=== PATIENT | female | born 1965 | race Caucasian/White ===

== ENCOUNTER 2016-12-31 07:32 | Emergency (ER) | payer BC ==
[~2016-12-31] VITALS: Ht 165.1 cm; Wt 133.4 kg
[2016-12-31] MEDS ORDERED: IV NORMAL SALINE 1000ML BAG 1,000 ML IV ONE (08:15)
[2016-12-31] MEDS ORDERED: diphenhydrAMINE 50 MG/ML VIAL IVP ONE (08:15)
[2016-12-31] MEDS ORDERED: METOCLOPRAMIDE HCL 10 MG/2 ML VIAL. IV ONE (08:15)
--- NOTE | 2016-12-31 08:32 | PHYS DOC ---
Past Medical History Past Medical History: No Pertinent History Past Surgical History: No Surgical History Alcohol Use: None Drug Use: None Adult General Chief Complaint Chief Complaint: HEADACHE HPI HPI 51-year-old female presenting to the emergency department today with a typical headache. She describes having this severe headache that started around 5 AM. It is sharp radiating to the back and associated with mild blurred vision. She denies numbness or weakness in her extremities. She denies it being sudden in onset. She denies neck stiffness. She denies fevers. Review of systems is negative for , chest pain shortness of breath abdominal pain. Positive for nausea without vomiting. All other review of systems is negative unless otherwise noted in history of present illness. Review of Systems Review of Systems SEE ABOVE. Current Medications Current Medications Current Medications Medications (Trade) Dose Ordered Sig/Jeet Start Time Stop Time Status Last Admin Dose Admin Dexamethasone Sodium Phosphate (Decadron) 10 mg 1X ONCE 12/31/16 10:15 12/31/16 10:17 DC 12/31/16 11:26 10 MG Diphenhydramine HCl (Benadryl) 50 mg 1X ONCE 12/31/16 08:15 12/31/16 08:33 DC 12/31/16 09:43 50 MG Hydromorphone HCl (Dilaudid) 0.5 mg PRN Q1HR PRN 12/31/16 10:30 12/31/16 11:06 0.5 MG Ketorolac Tromethamine (Toradol) 30 mg 1X ONCE 12/31/16 10:15 12/31/16 10:17 DC 12/31/16 11:05 30 MG Metoclopramide HCl (Reglan) 20 mg 1X ONCE 12/31/16 08:15 12/31/16 08:33 DC 12/31/16 09:45 20 MG Ondansetron HCl (Zofran) 4 mg 1X ONCE 12/31/16 10:30 12/31/16 10:31 DC 12/31/16 11:05 4 MG Sodium Chloride 1,000 ml @ 1,000 mls/hr 1X ONCE 12/31/16 08:15 12/31/16 09:14 DC 12/31/16 09:42 1,000 MLS/HR Allergies Allergies Allergies Coded Allergies Type Severity Reaction Last Updated Verified Iodine and Iodide Containing Produc Allergy Unknown Hives,Itching. 12/31/16 Yes codeine Allergy Unknown Hives,Itching. 12/31/16 Yes Physical Exam Physical Exam Constitutional: Well developed, well nourished, no acute distress, non-toxic appearance. HENT: Normocephalic, atraumatic, bilateral external ears normal, oropharynx moist, no oral exudates, nose normal. [] Eyes: PERRLA, EOMI, conjunctiva normal, no discharge. Neck: Normal range of motion, no tenderness, supple, no stridor. [] Cardiovascular:Heart rate regular rhythm, no murmur [] Lungs & Thorax: Bilateral breath sounds clear to auscultation Abdomen: Bowel sounds normal, soft, no tenderness, no masses, no pulsatile masses. [] Skin: Warm, dry, no erythema, no rash. Back: No tenderness, no CVA tenderness. [] Extremities: No tenderness, no cyanosis, no clubbing, ROM intact, no edema. Neurologic: Mental status: Awake oriented and alert x3 Cranial nerves: Extraocular movements intact, eyebrows sheeba bilaterally smile symmetric, uvula elevation, shoulder shrug intact, tongue protrusion normal DTRs: 2+ Sensation: equal and normal in all extremities Strength: 5/5 in upper and lower extremities bilaterally Cerebellar function shows normal [id number]. dysdiadochokinesia is not present. Normal finger to nose. Psychologic: Affect normal, judgement normal, mood normal. [] Current Patient Data Vital Signs Vital Signs Date Time Temp Pulse Resp B/P (MAP) Pulse Ox O2 Delivery O2 Flow Rate FiO2 12/31/16 11:14 67 18 120/80 (93) 96 Room Air Lab Values Laboratory Tests Test 12/31/16 08:30 12/31/16 14:00 White Blood Count 7.5 x10^3/uL (4.0-11.0) Red Blood Count 4.85 x10^6/uL (3.50-5.40) Hemoglobin 14.2 g/dL (12.0-15.5) Hematocrit 41.2 % (36.0-47.0) Mean Corpuscular Volume 85 fL (79-100) Mean Corpuscular Hemoglobin 29 pg (25-35) Mean Corpuscular Hemoglobin Concent 35 g/dL (31-37) Red Cell Distribution Width 13.4 % (11.5-14.5) Platelet Count 303 x10^3/uL (140-400) Neutrophils (%) (Auto) 74 % (31-73) H Lymphocytes (%) (Auto) 18 % (24-48) L Monocytes (%) (Auto) 6 % (0-9) Eosinophils (%) (Auto) 1 % (0-3) Basophils (%) (Auto) 1 % (0-3) Neutrophils # (Auto) 5.6 x10^3uL (1.8-7.7) Lymphocytes # (Auto) 1.4 x10^3/uL (1.0-4.8) Monocytes # (Auto) 0.4 x10^3/uL (0.0-1.1) Eosinophils # (Auto) 0.1 x10^3/uL (0.0-0.7) Basophils # (Auto) 0.0 x10^3/uL (0.0-0.2) Sodium Level 140 mmol/L (136-145) Potassium Level 3.9 mmol/L (3.5-5.1) Chloride Level 106 mmol/L (98-107) Carbon Dioxide Level 26 mmol/L (21-32) Anion Gap 8 (6-14) Blood Urea Nitrogen 17 mg/dL (7-20) Creatinine 0.8 mg/dL (0.6-1.0) Estimated GFR (Cockcroft-Gault) 75.0 Glucose Level 117 mg/dL (70-99) H Calcium Level 8.7 mg/dL (8.5-10.1) CSF Color Colorless CSF Clarity Clear CSF WBC 1 CSF RBC 221 CSF Glucose 61 mg/dL (37-70) CSF Total Protein 34.6 mg/dL (15.0-45.0) Laboratory Tests 12/31/16 08:30 Laboratory Tests 12/31/16 08:30 Microbiology 12/31/16 Gram Stain - Final, Complete EKG EKG [] Radiology/Procedures Radiology/Procedures [] Course & Med Decision Making Course & Med Decision Making Pertinent Labs and Imaging studies reviewed. (See chart for details) [] 51-year-old female presenting to the emergency department with a typical headache. She did have a history of migraines however reports this is different from her previous migraines. Initial neurologic exam was unremarkable. CT of the head obtained. Blood work obtained. IV established. Reglan and Benadryl with fluids given. On reexamination her headache had improved. CT unremarkable. Lumbar unsure obtained in the emergency department was unfortunately unable to obtain CSF. Fluoroscopically guided lumbar puncture was ordered. [place] - LP negative for meningitis or subarachnoid hemorrhage and she has repeat normal neurologic exam and she appears well with normal vital signs and she'll be discharged in stable condition. Patient aware and agreeable with plan. Dragon Disclaimer Dragon Disclaimer This electronic medical record was generated, in whole or in part, using a voice recognition dictation system. Departure Departure Impression: Primary Impression: Complicated headache syndromes Disposition: HOME, SELF-CARE Condition: GOOD Patient Instructions: General Headache Without Cause, [id number] Lumbar Puncture Lumbar Indication: Suspected meningitis Consent: Consent was obtained Procedure: The patient was placed in the left lateral decubitus position and the appropriate landmarks were identified. The area was prepped and draped in the usual sterile fashion. Anesthesia was obtained using 1% lidocaine. A spinal needle was inserted at the L4/L5 level. Unfortunately, CSF was unable to be obtained. A sterile dressing was placed over the site and the patient was placed in the supine position. The patient tolerated the procedure well. Complications: none. GERALDO WOOD MD December 31, 2016 08:32 MARKOS CAGLE DO December 31, 2016 15:29
[2016-12-31] MEDS ORDERED: METO-269 PO (08:34)
[2016-12-31] MEDS ORDERED: TRAM50TA PO (08:34)
[2016-12-31] MEDS ORDERED: MELO-156 PO (08:34)
--- NOTE | 2016-12-31 08:41 | RAD ---
Exam performed: CT scan of the head without contrast. Date of Service: 12/31/16. Comparison: None available. Clinical History: Headache since morning, nausea and vomiting with tingling in the arms. Technique: Helical acquisitions are obtained from the foramen magnum to the vertex without intravenous administration of contrast. Findings: The ventricles are midline without evidence of dilatation. Normal somers-white differentiation is maintained. There is no extra axial fluid collection, intraparenchymal hemorrhage or mass lesion. The visualized portions of the orbits, paranasal sinuses and the mastoid air cells appear clear. The calvarium is intact. Impression: 1. No acute intracranial process detected. PQRS Compliance Statement: One or more of the following individualized dose reduction techniques were utilized for this examination: 1. Automated exposure control 2. Adjustment of the mA and/or kV according to patient size 3. Use of iterative reconstruction technique
[2016-12-31 08:47] LABS: BASO % 1 % (0-3); EOS % 1 % (0-3); HEMATOCRIT 41.2 % (36.0-47.0); HEMOGLOBIN 14.2 g/dL (12.0-15.5); LYMPH # 1.4 x10^3/uL (1.0-4.8); LYMPH % 18 % (24-48); MEAN CORPUSCULAR HEMOGLOBIN 29 pg (25-35); MEAN CORPUSCULAR HGB CONC 35 g/dL (31-37); MEAN CORPUSCULAR VOLUME 85 fL (79-100); MONO % 6 % (0-9); NEUT % 74 % (31-73); PLATELET COUNT 303 x10^3/uL (140-400); RED BLOOD COUNT 4.85 x10^6/uL (3.50-5.40); RED CELL DISTRIBUTION WIDTH 13.4 % (11.5-14.5); WHITE BLOOD COUNT 7.5 x10^3/uL (4.0-11.0)
[2016-12-31 08:56] LABS: CALCIUM 8.7 mg/dL (8.5-10.1); CREATININE 0.8 mg/dL (0.6-1.0); POTASSIUM 3.9 mmol/L (3.5-5.1)
[2016-12-31] MEDS ORDERED: DEXAMETHASONE SOD PHOS 20 MG/5 ML VIAL. IV ONE (10:15)
[2016-12-31] MEDS ORDERED: KETOROLAC TROMETHAMINE 30 MG/ML INJ. IV ONE (10:15)
[2016-12-31] MEDS ORDERED: ONDANSETRON PF 4 MG/2 ML VIAL. IV ONE (10:30)
[2016-12-31] MEDS: HYDROmorphone 2 MG/ML VIAL IV PRN ×2 (11:06→15:40)
--- NOTE | 2016-12-31 14:32 | RAD ---
Exam performed: Fluoroscopic-guided lumbar puncture . Indication: HEADACHE. Date of service: 12/31/2016 3:00 PM. Comparison: CT head without contrast from earlier today Discussion: The procedure was explained to the patient and informed consent was obtained. Under fluoroscopy a site was marked at L2 level for subsequent lumbar puncture. The part was prepped and draped in the usual sterile fashion. Local anesthesia was given by injecting approximately 5 cc of 1% lidocaine at the premarked site. Thereafter a 20-gauge spinal needle was advanced from the pre-marked site into the thecal sac. Clear CSF return was obtained in the first pass. [Opening pressure was taken which measured approximately 28 mm of water. Approximately 6.5 cc of clear CSF was collected in 4 separate vials. After withdrawing the needle dry sterile Band-Aid the at the puncture site. The patient tolerated the procedure well and no immediate complications were encountered. The total fluoroscopy time of 0.6 minutes was utilized and a single fluoroscopic image was seen to the PACS system. Impression: Technically successful fluoroscopy guided lumbar puncture with collection of approximately of 6.5 cc of clear CSF. No immediate complications. Pathology is pending
[2016-12-31 14:34] LABS: CSF PROTEIN 34.6 mg/dL (15.0-45.0)
[2016-12-31 15:13] LABS: CSF CLARITY CLEAR; CSF COLOR COLORLESS
[2016-12-31] MEDS ORDERED: HYDROmorphone 2 MG/ML VIAL IV ONE (15:30)
[2016-12-31 15:41] VITALS: BP 131/78
== END 2016-12-31 15:55 | disposition home or self-care (01) ==
LOC: ER 09:38
DX: G44.59 Other complicated headache syndrome (principal); Z88.5 Allergy status to narcotic agent; Z91.041 Radiographic dye allergy status
CPT/HCPCS: 36415; 62270; 70450; 80048; 82945; 84157; 85027; 87071; 87075; 87205; 89051; 96361; 96374; 96375; 96376; 99285; J1100; J1170; J1200; J1885; J2405; J2765; J7030

== ENCOUNTER → 2017-11-23 | Outpatient (CLI) | payer BC ==
[2017-11-23] MEDS: GADOBUTROL 10 MMOL/10 ML VIAL IV (09:13)
== END | disposition home or self-care (01) ==
LOC: KCIC MRI 07:37
DX: H53.40 Unspecified visual field defects (principal)
CPT/HCPCS: 70543; 70553; A9585

== ENCOUNTER 2018-07-02 22:24 | Emergency (ER) | payer BC ==
[~2018-07-02] VITALS: Ht 165.1 cm; Wt 104.3 kg
[~2018-07-02 22:24] MED LIST: LOSA50TA7 PO; MELO7.5T29 PO; METO-269 PO; OMEP20CA9 PO; TRAM50TA PO
[2018-07-02] MEDS ORDERED: IV NORMAL SALINE 1000ML BAG 1,000 ML IV ONE (23:00)
[2018-07-02 23:13] LABS: BASO # 0.1 x10^3/uL (0.0-0.2); BASO % 1 % (0-3); EOS # 0.2 x10^3/uL (0.0-0.7); EOS % 2 % (0-3); HEMATOCRIT 43.4 % (36.0-47.0); HEMOGLOBIN 14.7 g/dL (12.0-15.5); LYMPH % 20 % (24-48); MEAN CORPUSCULAR HEMOGLOBIN 31 pg (25-35); MEAN CORPUSCULAR HGB CONC 34 g/dL (31-37); MEAN CORPUSCULAR VOLUME 90 fL (79-100); MONO # 0.5 x10^3/uL (0.0-1.1); MONO % 5 % (0-9); NEUT # 7.3 x10^3uL (1.8-7.7); NEUT % 73 % (31-73); PLATELET COUNT 316 x10^3/uL (140-400); RED BLOOD COUNT 4.82 x10^6/uL (3.50-5.40); RED CELL DISTRIBUTION WIDTH 14.7 % (11.5-14.5)
[2018-07-02] MEDS ORDERED: KETOROLAC 15 MG/ML VIAL. IV ONE (23:15)
[2018-07-02] MEDS ORDERED: METOCLOPRAMIDE HCL 10 MG/2 ML VIAL. IV ONE (23:15)
[2018-07-02] MEDS ORDERED: diphenhydrAMINE 50 MG/ML VIAL IVP ONE (23:15)
--- NOTE | 2018-07-02 23:27 | RAD ---
INDICATION: acute onset headache and weakness
no trauma COMPARISON: December 2016 TECHNIQUE: Axial CT images obtained through the head without intravenous contrast. One or more of the following individualized dose reduction techniques were utilized for this examination: 1. Automated exposure control; 2. Adjustment of the mA and/or kV according to patient size; 3. Use of iterative reconstruction technique. FINDINGS: No intracranial hemorrhage. No midline shift. Basal cisterns patent. Mild prominence of subdural space frontally which could be from mild volume loss. No acute osseous abnormality. Orbits and paranasal sinuses unremarkable. IMPRESSION: 1. No acute intracranial hemorrhage. Electronically signed by: Bj Sellers MD (07/02/2018 11:24 PM) [facility]
[2018-07-03 00:04] LABS: BILIRUBIN,URINE SMALL (NEG); CLARITY,URINE CLEAR; COLOR,URINE YELLOW; NITRITE,URINE NEGATIVE (NEG); PROTEIN,URINE NEGATIVE (NEG-TRACE)
[2018-07-03 00:09] LABS: BARBITURATES NEG (NEG); BENZODIAZEPINES NEG (NEG); CANNABINOIDS NEG (NEG); COCAINE NEG (NEG); METHADONE NEG (NEG); OPIATES NEG (NEG); PHENCYCLIDINE NEG (NEG)
[2018-07-03 00:09] LABS: CALCIUM 8.8 mg/dL (8.5-10.1); CREATININE 0.6 mg/dL (0.6-1.0); GFR 103.8; POTASSIUM 3.9 mmol/L (3.5-5.1)
[2018-07-03 00:10] LABS: PROTHROMBIN TIME PATIENT 12.1 SEC (11.7-14.0)
[2018-07-03 00:10] LABS: BACTERIA,URINE FEW /HPF (0-FEW); RBC,URINE 0 /HPF (0-2); SQUAMOUS EPITHELIAL CELL,UR MOD /LPF
[2018-07-03 00:11] LABS: AMPHETAMINE/METHAMPHETAMINE NEG (NEG)
--- NOTE | 2018-07-03 00:12 | PHYS DOC ---
Past Medical History Past Medical History: Migraines Past Surgical History: No Surgical History Additional Past Surgical Histo: "Hole in heart-repaired." Alcohol Use: Occasionally Drug Use: None Adult General Chief Complaint Chief Complaint: HEADACHE HPI HPI Patient is a 53 year old female who presents with headache. This is different than her usual migraine. Patient feels unsteady with this. Denies any trauma. Patient took Tylenol without any significant improvement in the pain. This started approximately 2000 this evening. Denies any trauma. Reports photophobia is present. Some nausea, however not as bad as her usual migraine. Patient was unable to take the Benadryl component of her usual home migraine medication regimen because of being out of it. Patient denies any fevers. [] Review of Systems Review of Systems Constitutional: Denies fever or chills [] Eyes: Denies change in visual acuity, redness, or eye pain [] HENT: Denies nasal congestion or sore throat [] Respiratory: Denies cough or shortness of breath [] Cardiovascular: No chest pain or palpitations[] GI: Denies abdominal pain, nausea, vomiting, bloody stools or diarrhea [] : Denies dysuria or hematuria [] Musculoskeletal: Denies back pain or joint pain [] Integument: Denies rash or skin lesions [] Neurologic: Denies focal weakness, see history of present illness[] Endocrine: Denies polyuria or polydipsia [] All other systems were reviewed and found to be within normal limits, except as documented in this note. Current Medications Current Medications Current Medications Medications (Trade) Dose Ordered Sig/Jeet Start Time Stop Time Status Last Admin Dose Admin Diphenhydramine HCl (Benadryl) 50 mg 1X ONCE 07/02/18 23:15 07/02/18 23:16 DC 07/03/18 00:11 50 MG Ketorolac Tromethamine (Toradol 15mg Vial) 15 mg 1X ONCE 07/02/18 23:15 07/02/18 23:16 DC 07/03/18 00:10 15 MG Metoclopramide HCl (Reglan Vial) 10 mg 1X ONCE 07/02/18 23:15 07/02/18 23:16 DC 07/03/18 00:12 10 MG Sodium Chloride 1,000 ml @ 1,000 mls/hr 1X ONCE 07/02/18 23:00 07/02/18 23:59 DC 07/03/18 00:10 1,000 MLS/HR Allergies Allergies Allergies Coded Allergies Type Severity Reaction Last Updated Verified Gadolinium-Containing Contrast Medi Allergy Intermediate Itching/hives 11/23/17 Yes Iodine and Iodide Containing Produc Allergy Unknown Hives,Itching. 12/31/16 Yes codeine Allergy Unknown Hives,Itching. 12/31/16 Yes Physical Exam Physical Exam Constitutional: Well developed, well nourished, no acute distress, non-toxic appearance. [] HENT: Normocephalic, atraumatic, bilateral external ears normal, oropharynx moist, no oral exudates, nose normal. [] Eyes: PERRLA, EOMI, conjunctiva normal, no discharge. [] Neck: Normal range of motion, no tenderness, supple, no stridor. [] Cardiovascular:Heart rate regular rhythm, no murmur [] Lungs & Thorax: Bilateral breath sounds clear to auscultation [] Abdomen: Bowel sounds normal, soft, no tenderness, no masses, no pulsatile masses. [] Skin: Warm, dry, no erythema, no rash. [] Back: No tenderness, no CVA tenderness. [] Extremities: No tenderness, no cyanosis, no clubbing, ROM intact, no edema. [] Neurologic: Alert and oriented X 3, normal motor function, normal sensory function, no focal deficits noted. Negative Romberg. NIH stroke scale was negative/0 [] Psychologic: Affect normal, judgement normal, mood normal. [] Current Patient Data Vital Signs Vital Signs Date Time Temp Pulse Resp B/P (MAP) Pulse Ox O2 Delivery O2 Flow Rate FiO2 07/02/18 22:30 97.8 90 14 127/82 (97) 99 Room Air 97.8 Lab Values Laboratory Tests Test 07/02/18 22:59 07/02/18 23:41 07/02/18 23:52 White Blood Count 10.0 x10^3/uL (4.0-11.0) Red Blood Count 4.82 x10^6/uL (3.50-5.40) Hemoglobin 14.7 g/dL (12.0-15.5) Hematocrit 43.4 % (36.0-47.0) Mean Corpuscular Volume 90 fL (79-100) Mean Corpuscular Hemoglobin 31 pg (25-35) Mean Corpuscular Hemoglobin Concent 34 g/dL (31-37) Red Cell Distribution Width 14.7 % (11.5-14.5) H Platelet Count 316 x10^3/uL (140-400) Neutrophils (%) (Auto) 73 % (31-73) Lymphocytes (%) (Auto) 20 % (24-48) L Monocytes (%) (Auto) 5 % (0-9) Eosinophils (%) (Auto) 2 % (0-3) Basophils (%) (Auto) 1 % (0-3) Neutrophils # (Auto) 7.3 x10^3uL (1.8-7.7) Lymphocytes # (Auto) 2.0 x10^3/uL (1.0-4.8) Monocytes # (Auto) 0.5 x10^3/uL (0.0-1.1) Eosinophils # (Auto) 0.2 x10^3/uL (0.0-0.7) Basophils # (Auto) 0.1 x10^3/uL (0.0-0.2) Prothrombin Time 12.1 SEC (11.7-14.0) Prothrombin Time INR 0.9 (0.8-1.1) Sodium Level 141 mmol/L (136-145) Potassium Level 3.9 mmol/L (3.5-5.1) Chloride Level 104 mmol/L (98-107) Carbon Dioxide Level 24 mmol/L (21-32) Anion Gap 13 (6-14) Blood Urea Nitrogen 14 mg/dL (7-20) Creatinine 0.6 mg/dL (0.6-1.0) Estimated GFR (Cockcroft-Gault) 103.8 BUN/Creatinine Ratio 23 (6-20) H Glucose Level 106 mg/dL (70-99) H Calcium Level 8.8 mg/dL (8.5-10.1) Magnesium Level 2.0 mg/dL (1.8-2.4) Total Bilirubin 0.4 mg/dL (0.2-1.0) Aspartate Amino Transferase (AST) 24 U/L (15-37) Alanine Aminotransferase (ALT) 27 U/L (14-59) Alkaline Phosphatase 116 U/L (46-116) Troponin I Quantitative < 0.017 ng/mL (0.000-0.055) Total Protein 6.5 g/dL (6.4-8.2) Albumin 3.2 g/dL (3.4-5.0) L Albumin/Globulin Ratio 1.0 (1.0-1.7) Urine Collection Type Unknown Urine Color Yellow Urine Clarity Clear Urine pH 6.0 Urine Specific Sparks >=1.030 Urine Protein Negative mg/dL (NEG-TRACE) Urine Glucose (UA) Negative mg/dL (NEG) Urine Ketones (Stick) Negative mg/dL (NEG) Urine Blood Negative (NEG) Urine Nitrite Negative (NEG) Urine Bilirubin Small (NEG) Urine Urobilinogen Dipstick 1.0 mg/dL (0.2 mg/dL) Urine Leukocyte Esterase Moderate (NEG) Urine RBC 0 /HPF (0-2) Urine WBC 11-20 /HPF (0-4) Urine Squamous Epithelial Cells Mod /LPF Urine Bacteria Few /HPF (0-FEW) Urine Mucus Mod /LPF Urine Opiates Screen Neg (NEG) Urine Methadone Screen Neg (NEG) Urine Barbiturates Neg (NEG) Urine Phencyclidine Screen Neg (NEG) Urine Amphetamine/Methamphetamine Neg (NEG) Urine Benzodiazepines Screen Neg (NEG) Urine Cocaine Screen Neg (NEG) Urine Cannabinoids Screen Neg (NEG) Urine Ethyl Alcohol Neg (NEG) Laboratory Tests 07/02/18 22:59 Laboratory Tests 07/02/18 23:41 EKG EKG EKG shows normal sinus rhythm, no ST elevation, normal QRS, normal QTC.[] Radiology/Procedures Radiology/Procedures CT scan of the head shows no acute changes[] Course & Med Decision Making Course & Med Decision Making Pertinent Labs and Imaging studies reviewed. (See chart for details) ED course: Patient arrived, was placed in bed, in tolerate exam well. She was transported to and from [place] without any complications. She did experience pain relief with the IV medications administered. Patient was discharged in improved condition after reviewing the labs and x-ray brace/CT findings with the patient. All questions were answered. Medical decision making: This appears to be an atypical migraine for the patient. No evidence of meningitis or encephalitis. No evidence of subarachnoid. No evidence of stroke syndrome. No evidence of cardiac dysrhythmia triggering this series of events today.[] Dragon Disclaimer Dragon Disclaimer This electronic medical record was generated, in whole or in part, using a voice recognition dictation system. Departure Departure Impression: Primary Impression: Atypical migraine Disposition: 01 HOME, SELF-CARE Condition: GOOD Referrals: HAILEY DIAZ DO (PCP) Patient Instructions: Migraine Headache Additional Instructions: No driving for 12 hours. Drink plenty of fluids. The next time you have a similar headache try 1/4 teaspoon of alex dissolved in water or apple juice. We'll up with your regular doctor in 2 days. Return to the ER if worsening headache, difficulty seeing, or any other concerns. LUIS SALES DO Jul 03, 2018 00:12
[2018-07-03 00:15] LABS: ALBUMIN 3.2 g/dL (3.4-5.0); TOTAL BILIRUBIN 0.4 mg/dL (0.2-1.0); TOTAL PROTEIN 6.5 g/dL (6.4-8.2)
[2018-07-03 00:48] VITALS: BP 117/58
--- NOTE | 2018-07-03 15:31 | EKG ---
[facility] [address] [place] [address] Test Date: 2018-07-02 Test Time: 23:43:41 Pat Name: JANET CHAVEZ Department: Room: Gender: F [employer] Coordinator: : 1965 Requested By: LUIS SALES Order Number: [id number] Reading MD: Placido Chapman MD Measurements Intervals [place] Rate: 74 P: 51 [place]: 134 QRS: 22 QRSD: 74 T: 37 QT: 358 QTc: 402 Interpretive Statements SINUS RHYTHM Electronically Signed On 07-04-2018 10:27:58 NIGHT CUSTODIAN by Placido Chapman MD
== END 2018-07-03 01:30 | disposition home or self-care (01) ==
LOC: ER 22:24
DX: G43.809 Other migraine, not intractable, without status migrainosus (principal); H53.149 Visual discomfort, unspecified; R11.0 Nausea; Z88.5 Allergy status to narcotic agent; Z91.041 Radiographic dye allergy status
CPT/HCPCS: 36415; 70450; 80053; 80307; 81001; 83735; 84484; 85025; 85610; 93005; 96374; 96375; 99285; J1200; J1885; J2765; J7030; 87086